=== PATIENT | male | born 1995 | race African-American/Black ===

== ENCOUNTER 2021-03-30 07:55 | Emergency (ER) | payer MEDICAID, OTHER ==
[~2021-03-30] VITALS: Ht 193 cm; Wt 108.9 kg
[2021-03-30 07:58] VITALS: BP 156/82
== END 2021-03-30 08:15 | disposition left against medical advice (07) ==
LOC: ER 07:55
DX: F41.9 Anxiety disorder, unspecified (principal); Z53.21 Procedure and treatment not carried out due to patient leaving prior to being seen by health care provider
CPT/HCPCS: 93005

== ENCOUNTER → 2022-01-27 | Emergency (ER) | payer MEDICAID | END | disposition left against medical advice (07) | LOC: EDUNIT# 12:37 → ER 12:51 → EDBD 12:51 | DX: R45.851 Suicidal ideations (principal); Z53.21 Procedure and treatment not carried out due to patient leaving prior to being seen by health care provider ==

== ENCOUNTER 2022-02-04 12:06 | Emergency (ER) | payer MEDICAID ==
[~2022-02-04] VITALS: Ht 185.4 cm; Wt 59.0 kg
[2022-02-04] MEDS ORDERED: IBU600T PO (12:26)
[2022-02-04] MEDS ORDERED: HYDROcodone-ACET 10/325MG TAB PO ONE (12:30)
[2022-02-04 16:18] VITALS: BP 129/82
== END 2022-02-04 16:21 | disposition home or self-care (01) ==
LOC: ER 12:06 → EDBD 12:06 → ER 16:21
DX: M79.10 Myalgia, unspecified site (principal); F17.210 Nicotine dependence, cigarettes, uncomplicated; F12.10 Cannabis abuse, uncomplicated; Z88.6 Allergy status to analgesic agent
CPT/HCPCS: 73620